=== PATIENT | female | born 1975 | race American Indian/Alaskan Native ===

== ENCOUNTER 2019-02-07 14:00 | Day surgery (SDC) | payer OTHER ==
[2019-02-07 14:56] LABS: Hemoglobin 11.6 gm/dl (10.1-14.3); Mean Corpuscular HGB Conc 35 % (30-34); Mean Corpuscular Volume 89 fl (79-97); Platelet Count 228 K/mm3 (140-440); Red Blood Count 3.69 M/mm3 (3.65-5.03); Red Cell Distribution Width 13.4 % (13.2-15.2)
[2019-02-07] MEDS ORDERED: SODIUM CHLORIDE 0.9% 500 ML 500 ML IV SCH (15:00)
[2019-02-07 15:06] LABS: INR 1.04 (0.87-1.13)
[2019-02-07 15:08] LABS: Partial Thromboplastin Time 24.4 Sec. (24.2-36.6)
[2019-02-07 15:09] LABS: BUN/Creatinine Ratio 23; Blood Urea Nitrogen 16 mg/dL (7-17); Calcium 8.8 mg/dL (8.4-10.2); Hemolysis Index 2
[2019-02-07] MEDS ORDERED: SODIUM CHLORIDE 0.9% 50 ML ONE ×2 (15:27→17:03)
[2019-02-07] MEDS ORDERED: WATER FOR INJ Sterile (PF) 20 ML ONE ×2 (15:28→17:00)
[2019-02-07] MEDS ORDERED: HEPARIN 10,000 UNITS/10 ML VIAL ONE (15:28)
[2019-02-07] MEDS ORDERED: ALTEPLASE 2 MG INJ ONE ×3 (15:28→17:03)
[2019-02-07] MEDS ORDERED: HEPARIN/NS 5000 UNIT/500ML 1,000 ML IR ONE (15:28)
[2019-02-07] MEDS: fentaNYL 100 MCG/2 ML INJ ONE ×5 (15:53→17:23)
[2019-02-07] MEDS: MIDAZOLAM 2 MG/2 ML INJ ONE ×5 (15:53→17:19)
[2019-02-07] MEDS: LIDOCAINE (2%) 20 MG/1 ML VIAL 20 ML MDV INFILTRATI ONE ×3 (16:01→16:24)
[2019-02-07] MEDS: HEPARIN/NS 5000 UNIT/500ML 500 ML IR ONE ×2 (16:03→16:55)
[2019-02-07] MEDS ORDERED: HEPARIN/NS 5000 UNIT/500ML 500 ML IR ONE (17:00)
[2019-02-07] MEDS: diphenhydrAMINE 50 MG/ML VIAL ONE ×2 (17:12→17:19)
[2019-02-07] MEDS ORDERED: oxyCODONE /ACETAMINOPHEN 5-325MG TAB ONE (17:48)
[2019-02-07] MEDS ORDERED: oxyCODONE /ACETAMINOPHEN 5-325MG TAB PO ONE (17:48)
--- NOTE | 2019-02-07 17:50 | Short Stay Summary ---
Short Stay Documentation Date of service: 02/07/19 Narrative H&P: See H&P - History H&P: obtained from office - Allergies and Medications Current Medications: Allergies Penicillins Allergy (Verified 12/20/17 17:24) Hives Sulfa (Sulfonamide Antibiotics) Allergy (Verified 12/20/17 17:24) Hives Home Medications Medication Instructions Recorded Confirmed Last Taken Type Oxycodone HCl/Acetaminophen 1 tab PO Q6H PRN 02/07/19 02/07/19 02/07/19 10:00 History [Percocet 7.5/325 mg] 1 Tab Tizanidine HCl [Tizanidine 2mg tab] 2 mg PO Q6H PRN 02/07/19 02/07/19 02/06/19 History 2 mg Active Medications Sodium Chloride (Nacl 0.9% 500 Ml) 500 mls @ 50 mls/hr IV DIRECT NORAH Last Admin: 02/07/19 15:02 Dose: 50 mls/hr Documented by: - Brief post op/procedure progress note Date of procedure: 02/07/19 Pre-op diagnosis: Acute DVT After Venous Stenting Post-op diagnosis: same Procedure: 1. Ultrasound Guided Access Right Popliteal Vein 2. Diagnostic Right Lower Extremity Venogram 3. Inferior Venocavagram 4. Ultrasound Guided Access Right Greater Saphenous Vein 5. Placement of Rabia IVC Filter 6. Percutaneous Phamacomechanical Thrombectomy of the Right SFV/Politeal Vein with 8 Fr Zelante Angiojet Catheter and TPA 7. Percutaneous Phamacomechanical Thrombectomy of the Right External Iliac Vein with 8 Fr Zelante Angiojet Catheter and TPA 8. Angioplasty of Right Common Femoral Vein with 12 x 60 EverCross Balloon 9. Radioologic Supervision with Interpretation Anesthesia: local, other (iv Sedation) Surgeon: CAPO HUNTER Estimated blood loss: minimal Pathology: none Condition: stable - Disposition Condition at discharge: Good Disposition: [id number] TO HOME OR SELFCARE Short Stay Discharge Plan Activity: other (No heavy Lifting for 24 hours) Wound: remove dressing (24 hours) Follow up with: BRIAN WING MD [Staff Physician] - 7 Days Prescriptions: Oxycodone HCl/Acetaminophen [Percocet 7.5/325 mg] 1 tab PO Q6H PRN #30 PRN Reason: Pain, Moderate (4-6)
[2019-02-07] MEDS ORDERED: oxyCODONE /ACETAMINOPHEN 5-325MG TAB PO PRN (17:53)
[2019-02-07] MEDS ORDERED: APIXABAN 5 MG TAB PO ONE (17:54)
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
[2019-02-07] MEDS ORDERED: ONDANSETRON 4 MG/2 ML INJ IV ONE (18:13)
[2019-02-07 19:01] VITALS: BP 173/103
== END 2019-02-07 19:30 | disposition home or self-care (01) ==
LOC: CATHLABREC 14:00
PROVIDERS: ATTEND Surgery Vascular Surgery
DX: I82.491 Acute embolism and thrombosis of other specified deep vein of right lower extremity (principal); I37.1 Nonrheumatic pulmonary valve insufficiency; I73.9 Peripheral vascular disease, unspecified; I10 Essential (primary) hypertension; M79.7 Fibromyalgia; F17.210 Nicotine dependence, cigarettes, uncomplicated; Z98.890 Other specified postprocedural states; Z88.0 Allergy status to penicillin; Z88.2 Allergy status to sulfonamides; Z79.899 Other long term (current) drug therapy; Z90.49 Acquired absence of other specified parts of digestive tract; Z90.710 Acquired absence of both cervix and uterus; Z87.442 Personal history of urinary calculi; Z86.2 Personal history of diseases of the blood and blood-forming organs and certain disorders involving the immune mechanism
CPT/HCPCS: 36415; 37187; 37191; 37248; 75820; 76937; 80048; 85027; 85610; 85730; 96374; 99156; 99157; C1725; C1757; C1769; C1880; J1200; J1644; J2250; J2405; J2997; J3010; J7040; Q9967